=== PATIENT | male | born 1970 ===

== ENCOUNTER 2017-06-17 14:27 | Emergency (ER) | payer MEDICAID ==
[~2017-06-17] VITALS: Ht 165.1 cm; Wt 80.0 kg
[2017-06-17 14:30] VITALS: BP 146/82; PULSE 78; RESP 16; TEMP 98.4; O2SAT 98
[2017-06-17] MEDS ORDERED: AMOX250C3 PO (14:35)
[2017-06-17] MEDS ORDERED: IBUP1TAB7 PO ×2 (14:35→16:03)
[2017-06-17] MEDS ORDERED: LIDOCAINE HCL 1% PF 30 ML VIAL INFIL ONE (15:45)
--- NOTE | 2017-06-17 15:47 | RADRPT ---
EXAM DATE/TIME: 06/17/2017 14:56 [place] COMPARISON: No previous studies available for comparison. INDICATIONS : Left pinky swelling and infection. Patient smashed the left 5th digit 1 week ago. MEDICAL HISTORY : None. SURGICAL HISTORY : None. ENCOUNTER: Initial ACUITY: 1 week PAIN SCORE: 10/10 LOCATION: Left 5th digit. FINDINGS: Examination of the fifth digit of the left hand demonstrates no evidence of fracture or dislocation. No radiopaque foreign bodies are seen. There is soft tissue swelling of the left fifth digit. CONCLUSION: Soft tissue swelling of the left fifth digit without definite underlying fracture not ed. Shen Chopra MD on June 17, 2017 at 15:44 Board Certified Radiologist. This report was verified electronically.
[2017-06-17] MEDS ORDERED: IBUPROFEN 800 MG TAB PO ONE (16:00)
[2017-06-17] MEDS ORDERED: CLINDAMYCIN 150 MG CAP PO SCH (16:00)
--- NOTE | 2017-06-17 16:00 | PD ---
HPI Chief Complaint: Pain: Acute or Chronic Time Seen by Provider: 14:38 Travel History International Travel<30 days: No Contact w/Intl Traveler<30days: No Traveled to known affect area: No History of Present Illness HPI 47-year-old right-hand dominant male presents to the ED for evaluation of 1 week history of 10/10 pain of the fifth digit of the left hand. Pain is throbbing, worsened by lowering the hand to his side, improved by raising the hand above the heart. Patient states that he smashed the finger approximately 2 weeks ago. He states that he had no symptoms for approximately one week. He states that then he began to gradually have a pressure sensation in the tip of the finger. He endorses limitations to range of motion secondary to edema. He denies fever, chills, nausea, vomiting. He states that he poked a hole in the side of his finger 2 days ago in an effort to relieve the pressure with no improvement of symptoms. Daughter is at bedside and states that she gave him 3 doses of amoxicillin with no improvement of symptoms. PFSH Social History Tobacco Use: No Allergies-Medications (Allergen,Severity, Reaction): Coded Allergies: No Known Allergies (Verified Allergy, Unknown, 06/17/17) Reported Meds & Prescriptions Reported Meds & Active Scripts Active Ibuprofen 800 Mg Tab 800 Mg PO Q8H PRN Clindamycin (Clindamycin HCl) 150 Mg Cap 450 Mg PO TID 10 Days Reported Ibuprofen 800 Mg Tab 800 Mg PO Q6HR PRN Amoxicillin 250 Mg Cap 250 Mg PO TID Review of Systems Except as stated in HPI: all other systems reviewed are Neg Physical Exam Narrative GENERAL: Well-nourished, well-developed male no acute distress. SKIN: Focused skin assessment warm/dry. HEAD: Normocephalic. EYES: No scleral icterus. No injection or drainage. NECK: Supple, trachea midline. No JVD or lymphadenopathy. CARDIOVASCULAR: Regular rate and rhythm without murmurs, gallops, or rubs. RESPIRATORY: Breath sounds equal bilaterally. No accessory muscle use. GASTROINTESTINAL: Abdomen soft, non-tender, nondistended. MUSCULOSKELETAL: No cyanosis, or edema. FOCUSED LEFT UPPER EXTREMITY EXAM: 2+ radial pulse. The fifth digit is edematous, mildly erythematous. There is a visible abscess on the radial aspect of the tuft of the finger. Edema limits range of motion. Neurovascularly intact to light touch distally. Remainder of the exam is unremarkable. BACK: Nontender without obvious deformity. No CVA tenderness. Data Data Last Documented VS Vital Signs Date Time Temp Pulse Resp B/P (MAP) Pulse Ox O2 Delivery O2 Flow Rate FiO2 06/17/17 14:30 98.4 78 16 146/82 (103) 98 Orders Orders Finger ([id number]) (06/17/17 14:37) Ice/Cold Pack (06/17/17 14:37) Lidocaine Pf 1% Inj (Xylocaine-Mpf 1% In (06/17/17 15:45) Abscess Culture And Gram Stain (06/17/17 15:42) Clindamycin (Cleocin) (06/17/17 16:00) Ibuprofen (Motrin) (06/17/17 16:00) Ed Discharge Order (06/17/17 16:06) MDM Medical Decision Making Medical Screen Exam Complete: Yes Emergency Medical Condition: Yes Differential Diagnosis Tuft fracture versus felon versus abscess versus tendinitis versus other Narrative Course 47-year-old right-hand dominant male presents to the ED for evaluation of 1 week history of 10/10 pain of the fifth digit of the left hand. Patient states that he smashed the finger approximately 2 weeks ago. He states that he had no symptoms for approximately one week. He states that then he began to gradually have a pressure sensation in the tip of the finger. He "poked a hole" in the side of his finger 2 days ago in an effort to relieve the pressure with no improvement of symptoms. Daughter is at bedside and states that she gave him 3 doses of amoxicillin with no improvement of symptoms. Vitals reviewed. Exam consistent with felon. I&D was performed. Please a procedure note for details. Patient's prescribed clindamycin 450mg 3 times a day 10 days. He is instructed to keep the wound clean, dry and covered, follow with Dr. Lee, on- call hand surgeon. He indicated understanding of instructions and is agreeable to the care plan. The patient is stable and discharged home. Procedures Procedure Narrative INCISION AND DRAINAGE OF ABSCESS: The area was prepped and was sterilely draped. A digital block was administered using 1% lidocaine. The area was properly anesthetized. A number 11 scalpel was used to make a 0.5-cm incision across the area of the abscess. The abscess was drained, complex loculations were broken down, and irrigated with normal saline. Cultures were obtained. Sterile dressing was applied. Diagnosis Primary Impression: Felon of finger of left hand Referrals: Karlo Lee III, MD Additional Instructions: Keep the wound clean, dry and covered. Change the dressing anytime it becomes wet or soiled. Begin the antibiotics today and take them until every pill is gone. 800 mg ibuprofen up to 3 times a day as needed for pain. Elevating the hand may also help to reduce throbbing pain. Follow-up with Dr. Lee as discussed. Return to the ED for worsening symptoms or any urgent or emergent medical condition. Med/Other Pt SpecificInfo: Prescription(s) given Scripts Ibuprofen (Ibuprofen) 800 Mg Tab 800 MG PO Q8H Y for Pain/Inflammation, #15 TAB 0 Refills Prov: Dori Hanna MD 06/17/17 Clindamycin (Clindamycin) 150 Mg Cap 450 MG PO TID for Infection for 10 Days, CAP 0 Refills Prov: Dori Hanna MD 06/17/17 Disposition: 01 DISCHARGE HOME Condition: Serious Jose EnriqueLisa WILLI Jun 17, 2017 16:00
[2017-06-17] MEDS ORDERED: CLIN150C14 PO (16:03)
== END 2017-06-17 16:47 | disposition home or self-care (01) ==
LOC: NEPK 14:27
DX: L03.012 Cellulitis of left finger (principal)
CPT/HCPCS: 10060; 73140; 86403; 87070; 87186

== ENCOUNTER 2017-06-20 19:06 | Emergency (ER) | payer MEDICAID ==
[~2017-06-20 19:06] MED LIST: AMOX250C3 PO; CLIN150C14 PO; IBUP1TAB7 PO
[2017-06-20 19:08] VITALS: BP 152/67; PULSE 65; RESP 16; TEMP 98.9; O2SAT 98
== END 2017-06-20 21:03 | disposition left against medical advice (07) ==
LOC: NED 19:06
DX: S61.209D Unspecified open wound of unspecified finger without damage to nail, subsequent encounter (principal); Z53.21 Procedure and treatment not carried out due to patient leaving prior to being seen by health care provider
CPT/HCPCS: 99281